=== PATIENT | male | born 1970 | race Caucasian/White ===

== ENCOUNTER 2020-11-13 18:28 | Emergency (ER) | payer OTHER | END 2020-11-13 19:39 | LOC: ED 18:28 | DX: Z02.89 Encounter for other administrative examinations (principal) ==

== ENCOUNTER 2020-11-13 18:28 | Emergency (ER) | payer SELFPAY ==
[~2020-11-13] VITALS: Ht 167.6 cm; Wt 91.6 kg
[2020-11-13 18:32] VITALS: Ht 167.6 cm; Wt 91.6 kg
[2020-11-13 19:39] VITALS: BP 145/108
== END 2020-11-13 19:39 ==
LOC: ED 18:28
DX: I10 Essential (primary) hypertension (principal)